=== PATIENT | male | born 1940 | race Caucasian/White ===

== ENCOUNTER 2022-03-25 13:47 | Inpatient (IN) | payer MEDICARE, BC ==
[2022-03-25 14:34] LABS: Mean Corpuscular HGB CONC 34.6 g/dL (32.0-36.0); Mean Corpuscular Hemoglobin 37.2 pg (27.0-33.0); Mean Corpuscular Volume 107.4 fl (81.2-95.1); Mean Platelet Volume 9.9 fl (7.4-10.4); Platelet Count 236 10x3/uL (150-450); RBC Distribution Width 17.2 % (11.5-14.5); Red Blood Cell (RBC) Count 2.96 10x6/uL (4.32-5.72); White Blood Cell (WBC) Count 26.5 10x3/uL (3.5-10.5)
[2022-03-25 14:35] LABS: MDiff Complete? YES
[2022-03-25] MEDS ORDERED: cefTRIAXone\\ROCEPHIN 1 GM VIAL ONE (14:36)
[2022-03-25 14:43] LABS: PTT 30.5 sec (22.0-33.0)
[2022-03-25] MEDS ORDERED: Azithromycin 500 MG VIAL ONE (14:44)
[2022-03-25 14:47] LABS: ALT (SGPT) 22 U/L (8-55); AST (SGOT) 29 U/L (5-34); Albumin 4.4 g/dL (3.4-4.8); Alkaline Phosphatase 49 U/L (40-110); Anion Gap 18 mmol/L (10-20); BUN (Urea Nitrogen) 27 mg/dL (8.4-25.7); Calc. Creatinine Clearance 0 mL/min (70-130); Calcium 9.2 mg/dL (7.8-10.44); Carbon Dioxide 20 mmol/L (23-31); Chloride 102 mmol/L (98-107); Estimated GFR 56; Globulin 2.9 g/dL (2.4-3.5); Glucose 165 mg/dL (83-110); Potassium 4.7 mmol/L (3.5-5.1); Protein, Total 7.3 g/dL (5.8-8.1); Sodium 135 mmol/L (136-145)
[2022-03-25 14:54] LABS: SARS-CoV-2 NAA Rapid Test Not Detected (NotDetected)
[2022-03-25 15:49] LABS: Band 7 % (5-11); Lymphocytes 5 % (21-51); Monocytes 4 % (0-10); Neutrophil 84 % (42-75)
[2022-03-25 15:50] LABS: Anisocytosis SLIGHT = 6-15 cells (100X) (0-5/hpf); Macrocytosis SLIGHT = 6-15 cells (100X) (0-5/hpf); Platelet Morphology Comment Appears Adequate
[2022-03-25 16:11] LABS: Bilirubin Neg (Negative); Blood, Urine Negative (Negative); Clarity Clear (Clear); Glucose, Urine (Dipstick) Normal (Negative); Ketone, Urine Negative (Negative); Leukocyte Negative (Negative); Nitrite Negative (Negative); Protein, Urine (Dipstick) 15 mg/dl (Neg-Trace); Urobilinogen Normal mg/dL (Less than 2)
[2022-03-25] MEDS ORDERED: Acetaminophen 325 MG TAB PO PRN (16:41)
[2022-03-25] MEDS ORDERED: Ondansetron ODT 4 MG TAB PO PRN (16:41)
[2022-03-25 17:53] LABS: Lactic Acid 2.1 mmol/L (0.5-2.2)
[2022-03-25] MEDS ORDERED: Dextrose 50% Abboject 50 ML SYRINGE SLOW IVP PRN (18:22)
[2022-03-25] MEDS ORDERED: HumaLOG 300 UNITS/3 ML VIAL SC PRN (18:22)
[2022-03-25] MEDS ORDERED: Dextrose 5% in Water 1,000 ML IV PRN (18:22)
[2022-03-25] MEDS: Sodium Chloride 0.9% 1,000 ML IV SCH (21:00)
[2022-03-25] MEDS: Metoprolol Tartrate 25 MG TAB PO SCH (21:03)
[2022-03-25] MEDS: Apixaban 2.5 MG TAB PO SCH (21:03)
[2022-03-25] MEDS: Rosuvastatin 10 MG TAB PO SCH (21:04)
[2022-03-25 23:36] LABS: Lactic Acid 2.2 mmol/L (0.5-2.2)
[2022-03-25 23:52] LABS: Legionella Urinary Ag Negative (Negative); Strep pneumo Urine Ag POSITIVE (NEGATIVE)
[2022-03-26 04:51] LABS: #Basophils 0.1 10x3/uL (0.0-0.2); #Monocytes 1.3 10x3/uL (0.0-1.1); #Neutrophils 27.5 10x3/uL (1.5-8.4); %Basophils 0.3 % (0.0-2.0); %Lymphocytes 7.8 % (18.0-47.0); %Monocytes 3.9 % (0.0-10.0); %Neutrophils 86.9 % (40.0-75.0); Hemoglobin 9.7 g/dL (13.5-17.5); Mean Corpuscular HGB CONC 34.3 g/dL (32.0-36.0); Mean Corpuscular Hemoglobin 36.9 pg (27.0-33.0); Mean Corpuscular Volume 107.6 fl (81.2-95.1); Mean Platelet Volume 10.6 fl (7.4-10.4); Platelet Count 208 10x3/uL (150-450); RBC Distribution Width 17.3 % (11.5-14.5); Red Blood Cell (RBC) Count 2.63 10x6/uL (4.32-5.72); White Blood Cell (WBC) Count 31.7 10x3/uL (3.5-10.5)
[2022-03-26 05:01] LABS: Anion Gap 13 mmol/L (10-20); BUN (Urea Nitrogen) 22 mg/dL (8.4-25.7); Calc. Creatinine Clearance 75 mL/min (70-130); Calcium 8.2 mg/dL (7.8-10.44); Carbon Dioxide 21 mmol/L (23-31); Chloride 106 mmol/L (98-107); Estimated GFR 78; Glucose 102 mg/dL (83-110); Potassium 4.2 mmol/L (3.5-5.1); Sodium 136 mmol/L (136-145)
[2022-03-26] MEDS: Sodium Chloride 0.9% 1,000 ML IV SCH ×2 (07:27→09:31)
[2022-03-26] MEDS ORDERED: Enoxaparin Sodium 40 MG/0.4 ML SYRINGE SC SCH (09:00)
[2022-03-26] MEDS: Apixaban 2.5 MG TAB PO SCH ×2 (09:25→21:30)
[2022-03-26] MEDS: Metoprolol Tartrate 25 MG TAB PO SCH ×2 (09:25→21:30)
[2022-03-26] MEDS: Aspirin 81 mg Enteric Coated Tablet PO SCH (09:25)
[2022-03-26] MEDS ORDERED: cefTRIAXone\\ROCEPHIN 1 GM in Sodium Chloride 0.9% 100 ML IVPB SCH (14:00)
[2022-03-26] MEDS ORDERED: Azithromycin 500 MG in Sodium Chloride 0.9% 250 ML 250 ML IVPB SCH (16:00)
[2022-03-26] MEDS ORDERED: Piperacillin/Tazobactam 3.375 GM in Sodium Chloride 0.9% 100 ML IVPB SCH (18:00)
[2022-03-26] MEDS: Piperacillin/Tazobactam 3.375 GM in Sodium Chloride 0.9% 100 ML IVPB SCH ×2 (18:31→23:36)
[2022-03-26] MEDS: Vancomycin HCl 1 GM in Sodium Chloride 0.9% 250 ML 250 ML IVPB SCH (21:30)
[2022-03-26] MEDS: Rosuvastatin 10 MG TAB PO SCH (21:30)
[2022-03-27] MEDS: Sodium Chloride 0.9% 1,000 ML IV SCH ×3 (04:37→15:56)
[2022-03-27] MEDS: Piperacillin/Tazobactam 3.375 GM in Sodium Chloride 0.9% 100 ML IVPB SCH ×2 (04:37→14:30)
[2022-03-27 04:52] LABS: #Basophils 0.1 10x3/uL (0.0-0.2); #Eosinphils 0.1 10x3/uL (0.0-0.5); #Monocytes 0.9 10x3/uL (0.0-1.1); #Neutrophils 12.8 10x3/uL (1.5-8.4); %Basophils 0.6 % (0.0-2.0); %Eosinophils 0.5 % (0.0-6.0); %Lymphocytes 11.3 % (18.0-47.0); Hemoglobin 9.3 g/dL (13.5-17.5); Mean Corpuscular HGB CONC 34.2 g/dL (32.0-36.0); Mean Corpuscular Hemoglobin 37.5 pg (27.0-33.0); Mean Corpuscular Volume 109.7 fl (81.2-95.1); Mean Platelet Volume 10.7 fl (7.4-10.4); Platelet Count 201 10x3/uL (150-450); RBC Distribution Width 17.2 % (11.5-14.5); Red Blood Cell (RBC) Count 2.48 10x6/uL (4.32-5.72); White Blood Cell (WBC) Count 15.8 10x3/uL (3.5-10.5)
[2022-03-27 05:11] LABS: Anion Gap 13 mmol/L (10-20); BUN (Urea Nitrogen) 17 mg/dL (8.4-25.7); Calc. Creatinine Clearance 89 mL/min (70-130); Calcium 8.4 mg/dL (7.8-10.44); Carbon Dioxide 20 mmol/L (23-31); Chloride 109 mmol/L (98-107); Estimated GFR 89; Glucose 108 mg/dL (83-110); Lactic Acid 0.9 mmol/L (0.5-2.2); Magnesium 2.1 mg/dL (1.6-2.6); Potassium 4.2 mmol/L (3.5-5.1); Sodium 138 mmol/L (136-145)
[2022-03-27 05:58] LABS: Anisocytosis SLIGHT = 6-15 cells (100X) (0-5/hpf); Macrocytosis SLIGHT = 6-15 cells (100X) (0-5/hpf); Platelet Morphology Comment Appears Adequate
[2022-03-27] MEDS: Vancomycin HCl 1 GM in Sodium Chloride 0.9% 250 ML 250 ML IVPB SCH ×2 (09:57→21:12)
[2022-03-27] MEDS: Metoprolol Tartrate 25 MG TAB PO SCH ×2 (09:58→20:56)
[2022-03-27] MEDS: Apixaban 2.5 MG TAB PO SCH ×2 (09:58→21:05)
[2022-03-27] MEDS: Aspirin 81 mg Enteric Coated Tablet PO SCH (09:58)
[2022-03-27] MEDS ORDERED: Furosemide 40 MG/4 ML VIAL SLOW IVP SCH (14:00)
[2022-03-27] MEDS ORDERED: hydrOXYzine Pamoate 25 mg Capsule PO PRN (15:21)
[2022-03-27] MEDS: Rosuvastatin 10 MG TAB PO SCH (20:56)
[2022-03-28] MEDS: Piperacillin/Tazobactam 3.375 GM in Sodium Chloride 0.9% 100 ML IVPB SCH ×4 (00:02→22:41)
[2022-03-28] MEDS ORDERED: Nitroglycerin 2% Ointment 1 INCH/1 GM Packet TOP SCH (02:00)
[2022-03-28 05:17] LABS: #Basophils 0.1 10x3/uL (0.0-0.2); #Eosinphils 0.1 10x3/uL (0.0-0.5); #Monocytes 1.2 10x3/uL (0.0-1.1); #Neutrophils 8.7 10x3/uL (1.5-8.4); %Basophils 0.7 % (0.0-2.0); %Eosinophils 0.8 % (0.0-6.0); %Lymphocytes 15.6 % (18.0-47.0); %Monocytes 9.9 % (0.0-10.0); %Neutrophils 72.2 % (40.0-75.0); Hemoglobin 8.4 g/dL (13.5-17.5); Mean Corpuscular HGB CONC 33.6 g/dL (32.0-36.0); Mean Corpuscular Hemoglobin 36.8 pg (27.0-33.0); Mean Corpuscular Volume 109.6 fl (81.2-95.1); Mean Platelet Volume 9.8 fl (7.4-10.4); Platelet Count 199 10x3/uL (150-450); Red Blood Cell (RBC) Count 2.28 10x6/uL (4.32-5.72)
[2022-03-28 05:18] LABS: Anion Gap 12 mmol/L (10-20); BUN (Urea Nitrogen) 13 mg/dL (8.4-25.7); Calc. Creatinine Clearance 87 mL/min (70-130); Calcium 8.5 mg/dL (7.8-10.44); Carbon Dioxide 24 mmol/L (23-31); Chloride 110 mmol/L (98-107); Estimated GFR 88; Glucose 124 mg/dL (83-110); Potassium 3.8 mmol/L (3.5-5.1); Sodium 142 mmol/L (136-145)
[2022-03-28] MEDS: Sodium Chloride 0.9% 1,000 ML IV SCH (06:14)
[2022-03-28] MEDS ORDERED: Furosemide 40 MG/4 ML VIAL SLOW IVP SCH ×2 (08:15→14:30)
[2022-03-28] MEDS ORDERED: methylPREDNISolone Sod Succ/PF 110 MG in Sodium Chloride 0.9% 250 ML 250 ML IVPB SCH (08:15)
[2022-03-28 08:22] LABS: Band 2 % (5-11); Lymphocytes 14 % (21-51); Monocytes 9 % (0-10); Neutrophil 75 % (42-75)
[2022-03-28 08:23] LABS: Platelet Morphology Comment Appears Adequate
[2022-03-28 08:24] LABS: Macrocytosis SLIGHT = 6-15 cells (100X) (0-5/hpf); Ovalocytes SLIGHT = 2-5 cells (100X) (0-1/hpf)
[2022-03-28 08:43] LABS: Vancomycin, Trough 9.7 ug/mL
[2022-03-28] MEDS: methylPREDNISolone Sod Succ/PF 125 MG/2 ML VIAL IVP SCH (08:44)
[2022-03-28 08:52] LABS: Actual Bicarbonate (HCO3a) 23.8 mEq/L (22-28); Base Excess (BEa) 0.1 mEq/L (-2.0 to +3.0); CO2 Tension 35.7 mmHg (35.0-45.0); Calcium, Ionized (arterial) 1.11 mmol/L (1.12-1.30); Carboxyhemoglobin (COHb) 0.7 gm% (0.0-3.0); Hemoglobin (Hb) 13.5 g/dL (14.0-18.0); O2 Tension (PaO2), arterial 62.5 mmHg (> 60.0); Potassium - ABG Lab 3.3 mmol/L (3.70-5.30); Puncture Site RRA; pH, Arterial 7.44 (7.35-7.45)
[2022-03-28 08:57] LABS: ALV-art Gradient 605.875 mmHg (0-20)
[2022-03-28] MEDS: Apixaban 2.5 MG TAB PO SCH ×2 (09:33→20:34)
[2022-03-28] MEDS: Metoprolol Tartrate 25 MG TAB PO SCH ×2 (09:33→20:34)
[2022-03-28] MEDS: Aspirin 81 mg Enteric Coated Tablet PO SCH (09:33)
[2022-03-28] MEDS: VANCOMYCIN 1.25 GM/250 ML BAG 1.25 GM in Premix Bag 1 BAG IVPB SCH ×2 (09:55→20:34)
[2022-03-28] MEDS: HumaLOG 300 UNITS/3 ML VIAL SC PRN (16:40)
[2022-03-28] MEDS: Rosuvastatin 10 MG TAB PO SCH (20:34)
[2022-03-29] MEDS: HumaLOG 300 UNITS/3 ML VIAL SC PRN ×4 (00:24→16:31)
[2022-03-29 01:32] VITALS: BMI 29.0
[2022-03-29 04:45] LABS: Hemoglobin 9.3 g/dL (13.5-17.5); Mean Corpuscular HGB CONC 34.3 g/dL (32.0-36.0); Mean Corpuscular Hemoglobin 36.9 pg (27.0-33.0); Mean Corpuscular Volume 107.5 fl (81.2-95.1); Mean Platelet Volume 10.2 fl (7.4-10.4); Platelet Count 260 10x3/uL (150-450); RBC Distribution Width 16.4 % (11.5-14.5); Red Blood Cell (RBC) Count 2.52 10x6/uL (4.32-5.72); White Blood Cell (WBC) Count 11.5 10x3/uL (3.5-10.5)
[2022-03-29 05:02] LABS: Anion Gap 15 mmol/L (10-20); BUN (Urea Nitrogen) 19 mg/dL (8.4-25.7); Calc. Creatinine Clearance 83 mL/min (70-130); Calcium 8.9 mg/dL (7.8-10.44); Carbon Dioxide 25 mmol/L (23-31); Chloride 106 mmol/L (98-107); Estimated GFR 86; Glucose 152 mg/dL (83-110); Potassium 3.2 mmol/L (3.5-5.1); Sodium 143 mmol/L (136-145)
[2022-03-29 05:03] LABS: Lactic Acid 1.2 mmol/L (0.5-2.2)
[2022-03-29 05:13] LABS: MDiff Complete? YES
[2022-03-29 05:24] LABS: Band 16 % (5-11); Lymphocytes 12 % (21-51); Monocytes 8 % (0-10); Neutrophil 64 % (42-75); Nucleated RBC 1 % (0)
[2022-03-29 05:25] LABS: Anisocytosis SLIGHT = 6-15 cells (100X) (0-5/hpf); Macrocytosis SLIGHT = 6-15 cells (100X) (0-5/hpf)
[2022-03-29 05:26] LABS: Hypochromia SLIGHT = 6-15 cells (100X) (0-5/hpf); Ovalocytes SLIGHT = 2-5 cells (100X) (0-1/hpf); Platelet Morphology Comment Appears Adequate
[2022-03-29] MEDS ORDERED: Potassium Chloride 20 MEQ TAB PO SCH (05:45)
[2022-03-29] MEDS: Piperacillin/Tazobactam 3.375 GM in Sodium Chloride 0.9% 100 ML IVPB SCH ×3 (05:59→21:18)
[2022-03-29] MEDS: Metoprolol Tartrate 25 MG TAB PO SCH ×2 (08:18→21:18)
[2022-03-29] MEDS: Apixaban 2.5 MG TAB PO SCH ×2 (08:19→21:18)
[2022-03-29] MEDS: methylPREDNISolone Sod Succ/PF 125 MG/2 ML VIAL IVP SCH (08:19)
[2022-03-29] MEDS: Aspirin 81 mg Enteric Coated Tablet PO SCH (08:19)
[2022-03-29] MEDS: VANCOMYCIN 1.25 GM/250 ML BAG 1.25 GM in Premix Bag 1 BAG IVPB SCH (08:56)
[2022-03-29] MEDS ORDERED: Furosemide 40 MG/4 ML VIAL SLOW IVP SCH (18:30)
[2022-03-29 20:20] LABS: Vancomycin, Trough 14.5 ug/mL
[2022-03-29] MEDS: Rosuvastatin 10 MG TAB PO SCH (21:18)
[2022-03-30 04:41] LABS: #Basophils 0.1 10x3/uL (0.0-0.2); #Monocytes 1.5 10x3/uL (0.0-1.1); #Neutrophils 14.9 10x3/uL (1.5-8.4); %Basophils 0.3 % (0.0-2.0); %Eosinophils 0.1 % (0.0-6.0); %Lymphocytes 12.2 % (18.0-47.0); %Monocytes 7.8 % (0.0-10.0); %Neutrophils 78.3 % (40.0-75.0); Hemoglobin 9.4 g/dL (13.5-17.5); Mean Corpuscular HGB CONC 34.1 g/dL (32.0-36.0); Mean Corpuscular Hemoglobin 36.3 pg (27.0-33.0); Mean Corpuscular Volume 106.6 fl (81.2-95.1); Mean Platelet Volume 9.9 fl (7.4-10.4); Platelet Count 321 10x3/uL (150-450); RBC Distribution Width 16.4 % (11.5-14.5); Red Blood Cell (RBC) Count 2.59 10x6/uL (4.32-5.72)
[2022-03-30 04:54] LABS: ALT (SGPT) 80 U/L (8-55); AST (SGOT) 51 U/L (5-34); Albumin 3.5 g/dL (3.4-4.8); Alkaline Phosphatase 96 U/L (40-110); Anion Gap 14 mmol/L (10-20); BUN (Urea Nitrogen) 24 mg/dL (8.4-25.7); Bilirubin, Direct 0.4 mg/dL (0.1-0.3); Bilirubin, Total 0.8 mg/dL (0.2-1.2); Calc. Creatinine Clearance 81 mL/min (70-130); Calcium 8.9 mg/dL (7.8-10.44); Carbon Dioxide 26 mmol/L (23-31); Chloride 108 mmol/L (98-107); Estimated GFR 86; Glucose 117 mg/dL (83-110); Potassium 3.4 mmol/L (3.5-5.1); Protein, Total 6.3 g/dL (5.8-8.1); Sodium 145 mmol/L (136-145)
[2022-03-30] MEDS: Piperacillin/Tazobactam 3.375 GM in Sodium Chloride 0.9% 100 ML IVPB SCH ×2 (05:18→13:16)
[2022-03-30] MEDS: Losartan Potassium 50 MG TAB PO SCH (08:08)
[2022-03-30] MEDS: Metoprolol Tartrate 25 MG TAB PO SCH ×2 (08:09→20:23)
[2022-03-30] MEDS: Aspirin 81 mg Enteric Coated Tablet PO SCH (08:09)
[2022-03-30] MEDS: Apixaban 2.5 MG TAB PO SCH ×2 (08:09→20:24)
[2022-03-30] MEDS: Hydrochlorothiazide 25 MG TAB PO SCH (08:09)
[2022-03-30] MEDS: Amlodipine 5 MG TAB PO SCH (08:09)
[2022-03-30] MEDS: methylPREDNISolone Sod Succ/PF 125 MG/2 ML VIAL IVP SCH (08:10)
[2022-03-30] MEDS: Potassium Chloride 20 MEQ TAB PO SCH ×2 (08:11→16:46)
[2022-03-30] MEDS: HumaLOG 300 UNITS/3 ML VIAL SC PRN ×2 (11:36→16:44)
[2022-03-30] MEDS: cefTRIAXone\\ROCEPHIN 2 GM in Sodium Chloride 0.9% 100 ML IVPB SCH (14:36)
[2022-03-30] MEDS: Azithromycin 250 MG TAB PO SCH (14:37)
[2022-03-30] MEDS: Rosuvastatin 10 MG TAB PO SCH ×2 (20:23→20:24)
[2022-03-30] MEDS: Senokot S 8.6-50 MG TAB PO SCH ×2 (21:06→21:08)
[2022-03-31 04:12] LABS: #Monocytes 1.6 10x3/uL (0.0-1.1); #Neutrophils 14.4 10x3/uL (1.5-8.4); %Basophils 0.2 % (0.0-2.0); %Eosinophils 0.1 % (0.0-6.0); %Lymphocytes 14.8 % (18.0-47.0); %Monocytes 7.9 % (0.0-10.0); %Neutrophils 72.9 % (40.0-75.0); Hemoglobin 9.5 g/dL (13.5-17.5); Mean Corpuscular HGB CONC 34.5 g/dL (32.0-36.0); Mean Corpuscular Hemoglobin 36.3 pg (27.0-33.0); Mean Platelet Volume 9.8 fl (7.4-10.4); Platelet Count 321 10x3/uL (150-450); RBC Distribution Width 16.5 % (11.5-14.5); Red Blood Cell (RBC) Count 2.62 10x6/uL (4.32-5.72); White Blood Cell (WBC) Count 19.8 10x3/uL (3.5-10.5)
[2022-03-31 04:18] LABS: Anion Gap 15 mmol/L (10-20); BUN (Urea Nitrogen) 22 mg/dL (8.4-25.7); Calc. Creatinine Clearance 91 mL/min (70-130); Calcium 9.1 mg/dL (7.8-10.44); Carbon Dioxide 26 mmol/L (23-31); Chloride 107 mmol/L (98-107); Estimated GFR 89; Glucose 107 mg/dL (83-110); Potassium 4.4 mmol/L (3.5-5.1); Sodium 144 mmol/L (136-145)
[2022-03-31] MEDS: Senokot S 8.6-50 MG TAB PO SCH (08:47)
[2022-03-31] MEDS: predniSONE 50 MG TAB PO SCH (08:47)
[2022-03-31] MEDS: Amlodipine 5 MG TAB PO SCH (08:50)
[2022-03-31] MEDS: Metoprolol Tartrate 25 MG TAB PO SCH ×2 (08:50→20:29)
[2022-03-31] MEDS: Losartan Potassium 50 MG TAB PO SCH (08:51)
[2022-03-31] MEDS: Apixaban 2.5 MG TAB PO SCH ×2 (08:51→20:29)
[2022-03-31] MEDS: Aspirin 81 mg Enteric Coated Tablet PO SCH (08:51)
[2022-03-31] MEDS: Polyethylene Glycol 3350 17 GM Packet PO SCH (08:51)
[2022-03-31] MEDS: Hydrochlorothiazide 25 MG TAB PO SCH (08:51)
[2022-03-31] MEDS: HumaLOG 300 UNITS/3 ML VIAL SC PRN ×2 (11:49→17:06)
[2022-03-31] MEDS: Azithromycin 250 MG TAB PO SCH (14:53)
[2022-03-31] MEDS: cefTRIAXone\\ROCEPHIN 2 GM in Sodium Chloride 0.9% 100 ML IVPB SCH (14:53)
[2022-03-31] MEDS ORDERED: hydrALAZINE 20 MG/ML VIAL SLOW IVP PRN (16:35)
[2022-03-31] MEDS: hydrALAZINE 20 MG/ML VIAL SLOW IVP PRN ×2 (17:06→22:23)
[2022-04-01 04:53] LABS: #Basophils 0.1 10x3/uL (0.0-0.2); #Eosinphils 0.1 10x3/uL (0.0-0.5); #Neutrophils 9.8 10x3/uL (1.5-8.4); %Basophils 0.4 % (0.0-2.0); %Eosinophils 0.7 % (0.0-6.0); %Lymphocytes 20.5 % (18.0-47.0); %Monocytes 6.9 % (0.0-10.0); Hemoglobin 9.7 g/dL (13.5-17.5); Mean Corpuscular HGB CONC 34.5 g/dL (32.0-36.0); Mean Corpuscular Hemoglobin 36.1 pg (27.0-33.0); Mean Corpuscular Volume 104.5 fl (81.2-95.1); Platelet Count 330 10x3/uL (150-450); RBC Distribution Width 17.1 % (11.5-14.5); Red Blood Cell (RBC) Count 2.69 10x6/uL (4.32-5.72); White Blood Cell (WBC) Count 14.7 10x3/uL (3.5-10.5)
[2022-04-01 05:19] LABS: Anion Gap 17 mmol/L (10-20); BUN (Urea Nitrogen) 22 mg/dL (8.4-25.7); Calc. Creatinine Clearance 95 mL/min (70-130); Calcium 8.9 mg/dL (7.8-10.44); Carbon Dioxide 21 mmol/L (23-31); Chloride 107 mmol/L (98-107); Estimated GFR 90; Glucose 107 mg/dL (83-110); Potassium 3.7 mmol/L (3.5-5.1); Sodium 141 mmol/L (136-145)
[2022-04-01] MEDS: Losartan Potassium 50 MG TAB PO SCH (08:27)
[2022-04-01] MEDS: Polyethylene Glycol 3350 17 GM Packet PO SCH (08:27)
[2022-04-01] MEDS: Metoprolol Tartrate 25 MG TAB PO SCH ×2 (08:27→20:46)
[2022-04-01] MEDS: Apixaban 2.5 MG TAB PO SCH ×2 (08:27→20:46)
[2022-04-01] MEDS: Aspirin 81 mg Enteric Coated Tablet PO SCH (08:27)
[2022-04-01] MEDS: Hydrochlorothiazide 25 MG TAB PO SCH (08:27)
[2022-04-01] MEDS: Amlodipine 10 MG TAB PO SCH (08:27)
[2022-04-01] MEDS: predniSONE 50 MG TAB PO SCH (08:36)
[2022-04-01] MEDS: HumaLOG 300 UNITS/3 ML VIAL SC PRN ×2 (12:12→16:29)
[2022-04-01] MEDS: cefTRIAXone\\ROCEPHIN 2 GM in Sodium Chloride 0.9% 100 ML IVPB SCH (14:53)
[2022-04-01] MEDS: Azithromycin 250 MG TAB PO SCH (14:53)
[2022-04-01] MEDS: Rosuvastatin 10 MG TAB PO SCH (20:46)
[2022-04-02 05:42] LABS: #Basophils 0.1 10x3/uL (0.0-0.2); #Eosinphils 0.2 10x3/uL (0.0-0.5); #Neutrophils 12.1 10x3/uL (1.5-8.4); %Basophils 0.3 % (0.0-2.0); %Lymphocytes 15.2 % (18.0-47.0); %Monocytes 6.3 % (0.0-10.0); %Neutrophils 74.7 % (40.0-75.0); Hemoglobin 9.5 g/dL (13.5-17.5); Mean Corpuscular HGB CONC 35.1 g/dL (32.0-36.0); Mean Corpuscular Hemoglobin 36.1 pg (27.0-33.0); Mean Platelet Volume 10.3 fl (7.4-10.4); Platelet Count 339 10x3/uL (150-450); RBC Distribution Width 16.9 % (11.5-14.5); Red Blood Cell (RBC) Count 2.63 10x6/uL (4.32-5.72); White Blood Cell (WBC) Count 16.3 10x3/uL (3.5-10.5)
[2022-04-02 05:57] LABS: Anion Gap 13 mmol/L (10-20); BUN (Urea Nitrogen) 25 mg/dL (8.4-25.7); Calc. Creatinine Clearance 100 mL/min (70-130); Calcium 8.7 mg/dL (7.8-10.44); Carbon Dioxide 25 mmol/L (23-31); Chloride 106 mmol/L (98-107); Estimated GFR 91; Glucose 113 mg/dL (83-110); Potassium 3.5 mmol/L (3.5-5.1); Sodium 140 mmol/L (136-145)
[2022-04-02] MEDS: predniSONE 50 MG TAB PO SCH (08:40)
[2022-04-02] MEDS: Hydrochlorothiazide 25 MG TAB PO SCH (08:40)
[2022-04-02] MEDS: Amlodipine 10 MG TAB PO SCH (08:41)
[2022-04-02] MEDS: Polyethylene Glycol 3350 17 GM Packet PO SCH (08:41)
[2022-04-02] MEDS: Aspirin 81 mg Enteric Coated Tablet PO SCH (08:41)
[2022-04-02] MEDS: Apixaban 2.5 MG TAB PO SCH (08:41)
[2022-04-02] MEDS: Metoprolol Tartrate 25 MG TAB PO SCH ×2 (08:42→20:05)
[2022-04-02] MEDS: Losartan Potassium 50 MG TAB PO SCH (08:42)
[2022-04-02] MEDS ORDERED: Furosemide 20 MG/2 ML VIAL SLOW IVP SCH (09:00)
[2022-04-02] MEDS: HumaLOG 300 UNITS/3 ML VIAL SC PRN ×2 (11:16→18:41)
[2022-04-02 12:36] LABS: Hemoglobin A1c 5.6 % (4.0-6.0)
[2022-04-02] MEDS: Azithromycin 250 MG TAB PO SCH (14:50)
[2022-04-02] MEDS: cefTRIAXone\\ROCEPHIN 2 GM in Sodium Chloride 0.9% 100 ML IVPB SCH (14:50)
[2022-04-02] MEDS: Furosemide 20 MG/2 ML VIAL SLOW IVP SCH (14:50)
[2022-04-02] MEDS: Rosuvastatin 10 MG TAB PO SCH (20:05)
[2022-04-02] MEDS: Apixaban 5 MG TAB PO SCH (20:05)
[2022-04-03 04:31] LABS: #Basophils 0.1 10x3/uL (0.0-0.2); #Eosinphils 0.2 10x3/uL (0.0-0.5); #Monocytes 1.2 10x3/uL (0.0-1.1); #Neutrophils 13.9 10x3/uL (1.5-8.4); %Basophils 0.3 % (0.0-2.0); %Eosinophils 1.1 % (0.0-6.0); %Lymphocytes 16.9 % (18.0-47.0); %Monocytes 6.4 % (0.0-10.0); %Neutrophils 73.9 % (40.0-75.0); Hemoglobin 10.8 g/dL (13.5-17.5); Mean Corpuscular HGB CONC 33.5 g/dL (32.0-36.0); Mean Corpuscular Hemoglobin 35.4 pg (27.0-33.0); Mean Corpuscular Volume 105.6 fl (81.2-95.1); Mean Platelet Volume 10.5 fl (7.4-10.4); Platelet Count 331 10x3/uL (150-450); RBC Distribution Width 16.9 % (11.5-14.5); Red Blood Cell (RBC) Count 3.05 10x6/uL (4.32-5.72); White Blood Cell (WBC) Count 18.8 10x3/uL (3.5-10.5)
[2022-04-03 04:42] LABS: Anion Gap 15 mmol/L (10-20); BUN (Urea Nitrogen) 23 mg/dL (8.4-25.7); Calc. Creatinine Clearance 100 mL/min (70-130); Calcium 9.1 mg/dL (7.8-10.44); Carbon Dioxide 24 mmol/L (23-31); Chloride 105 mmol/L (98-107); Estimated GFR 91; Glucose 86 mg/dL (83-110); Magnesium 2.1 mg/dL (1.6-2.6); Potassium 4.4 mmol/L (3.5-5.1); Sodium 140 mmol/L (136-145)
[2022-04-03 04:49] VITALS: TEMP 97.5
[2022-04-03] MEDS: Furosemide 20 MG/2 ML VIAL SLOW IVP SCH ×3 (05:58→16:53)
[2022-04-03 06:35] LABS: Polychromasia SLIGHT = 2-3 cells (100X) (0-2/hpf)
[2022-04-03 06:36] LABS: Hypochromia SLIGHT = 6-15 cells (100X) (0-5/hpf); Macrocytosis SLIGHT = 6-15 cells (100X) (0-5/hpf); Platelet Morphology Comment Appears Adequate
[2022-04-03 10:59] VITALS: BP 156/63
[2022-04-03] MEDS: Metoprolol Tartrate 25 MG TAB PO SCH (11:22)
[2022-04-03] MEDS: Losartan Potassium 50 MG TAB PO SCH (11:22)
[2022-04-03] MEDS: Apixaban 5 MG TAB PO SCH (11:22)
[2022-04-03] MEDS: Aspirin 81 mg Enteric Coated Tablet PO SCH (11:22)
[2022-04-03] MEDS: Amlodipine 10 MG TAB PO SCH (11:23)
[2022-04-03] MEDS: Hydrochlorothiazide 25 MG TAB PO SCH (11:23)
[2022-04-03] MEDS: Polyethylene Glycol 3350 17 GM Packet PO SCH (11:23)
[2022-04-03] MEDS: predniSONE 50 MG TAB PO SCH (11:25)
[2022-04-03] MEDS ORDERED: Iopamidol 370 76% 100 ML VIAL ONE (12:59)
[2022-04-03] MEDS: Azithromycin 250 MG TAB PO SCH (16:19)
[2022-04-03] MEDS: cefTRIAXone\\ROCEPHIN 2 GM in Sodium Chloride 0.9% 100 ML IVPB SCH ×2 (16:50→16:53)
== END 2022-04-03 19:30 | disposition home or self-care (01) | DRG 871 ==
LOC: CSHERS 13:47 → CSHTELE 20:18 → OBSVTOIN 20:19 → CSHICU 03-28 09:02 → CSHTELE 03-31 12:43
PROVIDERS: ADMIT Internal Medicine Geriatric Medicine; ATTEND Family Medicine
PROC: 3E03329 Introduction of Other Anti-infective into Peripheral Vein, Percutaneous Approach (ICD-10-PCS; principal; 2022-03-25)
PROC: 5A09457 Assistance with Respiratory Ventilation, 24-96 Consecutive Hours, Continuous Positive Airway Pressure (ICD-10-PCS; 2022-03-28)
DX: A40.3 Sepsis due to Streptococcus pneumoniae (principal); J13 Pneumonia due to Streptococcus pneumoniae; J96.01 Acute respiratory failure with hypoxia; E87.2 Acidosis; J44.1 Chronic obstructive pulmonary disease with (acute) exacerbation; J44.0 Chronic obstructive pulmonary disease with (acute) lower respiratory infection; J90 Pleural effusion, not elsewhere classified; J81.1 Chronic pulmonary edema; Z20.822 Contact with and (suspected) exposure to COVID-19; E11.51 Type 2 diabetes mellitus with diabetic peripheral angiopathy without gangrene; I48.91 Unspecified atrial fibrillation; D64.9 Anemia, unspecified; K21.9 Gastro-esophageal reflux disease without esophagitis; I10 Essential (primary) hypertension; E78.5 Hyperlipidemia, unspecified; J84.10 Pulmonary fibrosis, unspecified; Z79.899 Other long term (current) drug therapy; Z79.82 Long term (current) use of aspirin; Z79.84 Long term (current) use of oral hypoglycemic drugs; Z90.89 Acquired absence of other organs; Z98.41 Cataract extraction status, right eye; Z98.42 Cataract extraction status, left eye; Z87.891 Personal history of nicotine dependence; Z72.89 Other problems related to lifestyle
CPT/HCPCS: 36415; 36416; 36600; 71045; 71250; 71275; 80048; 80053; 80076; 80202; 81003; 82805; 83036; 83605; 83735; 84145; 85025; 85610; 85730; 86140; 87040; 87070; 87081; 87205; 87449; 87899; 93005; 93306; 93970; 94640; 94660; 94760; 96365; 96375; J0360; J0456; J0696; J1815; J1940; J2543; J2930; J3370; J3490; J7050; J7512; J7620; Q0177; Q9967; U0003; U0005

== ENCOUNTER 2022-04-09 15:04 | Emergency (ER) | payer MEDICARE, BC ==
[2022-04-09] MEDS ORDERED: Oxymetazoline HCl 0.05% ( 15 ML ) ONE (15:35)
[2022-04-09] MEDS ORDERED: Tranexamic Acid 1,000 MG/10 ML VIAL ONE (17:50)
== END 2022-04-09 18:17 | disposition home or self-care (01) ==
LOC: CSHERS 15:04
DX: R04.0 Epistaxis (principal); I10 Essential (primary) hypertension
CPT/HCPCS: 99282

== ENCOUNTER 2023-06-26 09:15 | Emergency (ER) | payer MEDICARE, BC ==
[2023-06-26] MEDS ORDERED: Lidocaine 1% w/Epinephrine 1:200K 30 ML VIAL ONE (09:39)
[2023-06-26] MEDS ORDERED: Boostrix 0.5 ML (Tdap) VIAL (>/=7 yrs of age) ONE (09:46)
== END 2023-06-26 10:30 | disposition home or self-care (01) ==
LOC: CSHERS 09:15
DX: S01.112A Laceration without foreign body of left eyelid and periocular area, initial encounter (principal); H11.32 Conjunctival hemorrhage, left eye; I10 Essential (primary) hypertension; W10.8XXA Fall (on) (from) other stairs and steps, initial encounter; Y93.89 Activity, other specified; Z23 Encounter for immunization
CPT/HCPCS: 12014; 70450; 70486; 72125; 90471; 90715

== ENCOUNTER 2023-06-26 18:40 | Emergency (ER) | payer MEDICARE, BC | END 2023-06-26 21:40 | disposition home or self-care (01) | LOC: CSHERS 18:40 | DX: S05.42XA Penetrating wound of orbit with or without foreign body, left eye, initial encounter (principal); H59.322 Postprocedural hemorrhage of left eye and adnexa following other procedure; I10 Essential (primary) hypertension; E66.9 Obesity, unspecified; W01.0XXA Fall on same level from slipping, tripping and stumbling without subsequent striking against object, initial encounter | CPT/HCPCS: 12014; 70450; 70486; 72125; 90471; 90715; 99283 ==

== ENCOUNTER 2023-07-03 08:59 | Emergency (ER) | payer MEDICARE, BC ==
[2023-07-03] MEDS ORDERED: Triple Antibiotic Oint 1 GM Packet ONE (10:23)
== END 2023-07-03 11:20 | disposition home or self-care (01) ==
LOC: CSHERS 08:59
DX: S01.112D Laceration without foreign body of left eyelid and periocular area, subsequent encounter (principal); I10 Essential (primary) hypertension; X58.XXXD Exposure to other specified factors, subsequent encounter

== ENCOUNTER 2023-12-25 09:55 | Emergency (ER) | payer MEDICARE ==
[2023-12-25] MEDS ORDERED: dilTIAZem 25 MG/5 ML VIAL ONE (10:35)
[2023-12-25 10:41] LABS: #Eosinphils 0.05 10x3/uL (0.0-0.5); #Monocytes 1.05 10x3/uL (0.0-1.1); #Neutrophils 9.49 10x3/uL (1.5-8.4); %Basophils 0.8 % (0.0-2.0); %Eosinophils 0.4 % (0.0-6.0); %Lymphocytes 15.2 % (18.0-47.0); %Monocytes 8.3 % (0.0-10.0); %Neutrophils 74.9 % (40.0-75.0); Hematocrit 29.2 % (38.8-50.0); Hemoglobin 10.2 g/dL (13.5-17.5); Mean Corpuscular HGB CONC 34.9 g/dL (32.0-36.0); Mean Corpuscular Hemoglobin 35.1 pg (27.0-33.0); Mean Corpuscular Volume 100.3 fl (81.2-95.1); Mean Platelet Volume 11.3 fl (7.4-10.4); Platelet Count 274 10x3/uL (150-450); Red Blood Cell (RBC) Count 2.91 10x6/uL (4.32-5.72); White Blood Cell (WBC) Count 12.7 10x3/uL (3.5-10.5)
[2023-12-25 11:02] LABS: ALT (SGPT) 9 U/L (8-55); AST (SGOT) 16 U/L (5-34); Albumin 3.5 g/dL (3.4-4.8); Alkaline Phosphatase 130 U/L (40-110); Anion Gap 16 mmol/L (10-20); BUN (Urea Nitrogen) 39 mg/dL (8.4-25.7); Bilirubin, Total 0.7 mg/dL (0.2-1.2); Calc. Creatinine Clearance 0 mL/min (70-130); Carbon Dioxide 26 mmol/L (23-31); Chloride 96 mmol/L (98-107); Estimated GFR 30; Globulin 3.2 g/dL (2.4-3.5); Lipase 142 U/L (8-78); Potassium 4.3 mmol/L (3.5-5.1); Protein, Total 6.7 g/dL (5.8-8.1); Sodium 134 mmol/L (136-145)
[2023-12-25 11:06] LABS: Troponin I Less than 0.010 ng/mL (< 0.028)
[2023-12-25 11:13] LABS: Critical Call Chemistry SJOS.OD@1110; Glucose 425 mg/dL (83-110)
[2023-12-25] MEDS ORDERED: Insulin Regular 300 UNITS/3 ML VIAL ONE (11:32)
[2023-12-25 12:37] LABS: Thyroid Stimulating Hormone 1.5568 uIU/mL (0.35-4.94)
[2023-12-25] MEDS ORDERED: Acetaminophen 500 MG TAB ONE (13:41)
[2023-12-25 14:26] LABS: T4 7.13 ug/dL (4.87-11.72)
== END 2023-12-25 13:54 | disposition home or self-care (01) ==
LOC: CSHERS 09:55
DX: I48.91 Unspecified atrial fibrillation (principal); N17.9 Acute kidney failure, unspecified; E11.65 Type 2 diabetes mellitus with hyperglycemia; J44.9 Chronic obstructive pulmonary disease, unspecified; I10 Essential (primary) hypertension; Z87.891 Personal history of nicotine dependence
CPT/HCPCS: 36416; 71045; 80053; 83036; 83690; 83880; 84436; 84443; 84484; 85025; 93005; 96361; 96374; 96375; 96376; J1815

== ENCOUNTER 2023-12-25 17:26 | Emergency (ER) | payer MEDICARE | END 2023-12-25 18:25 | disposition home or self-care (01) | LOC: CSHERS 17:26 | DX: K06.8 Other specified disorders of gingiva and edentulous alveolar ridge (principal); I10 Essential (primary) hypertension; E11.9 Type 2 diabetes mellitus without complications; I48.91 Unspecified atrial fibrillation; Z87.891 Personal history of nicotine dependence; Z79.01 Long term (current) use of anticoagulants | CPT/HCPCS: 99283 ==

== ENCOUNTER 2023-12-25 21:07 | Emergency (ER) | payer MEDICARE ==
[2023-12-25] MEDS ORDERED: HYDROcodone/Acetaminophen 5/325 mg Tablet ONE (23:24)
[2023-12-26 01:06] LABS: Bilirubin 3+ (Negative); Blood, Urine 50 (Negative); Clarity Clear (Clear); Glucose, Urine (Dipstick) 100 mg/dL (Negative); Ketone, Urine 5 mg/dL (Negative); Leukocyte 25 (Negative); Nitrite Negative (Negative); Protein, Urine (Dipstick) 30 mg/dl (Neg-Trace); Urobilinogen Normal mg/dL (Less than 2)
[2023-12-26 01:13] LABS: Bacteria/HPF Rare-Few HPF (None Seen); CAUTI Indications for Culture Pelvic or flank pain; RBC/HPF 0-3 HPF (0-3); Squamous Epithelial 0-3 HPF (0-3); Urine Culture Reflex No No; WBC/HPF 0-3 HPF (0-3)
[2023-12-26] MEDS ORDERED: HYDROcodone/Acetaminophen 5/325 mg Tablet ONE (01:43)
== END 2023-12-26 02:44 | disposition home or self-care (01) ==
LOC: CSHERS 21:07
DX: M54.50 Low back pain, unspecified (principal); E11.9 Type 2 diabetes mellitus without complications; I10 Essential (primary) hypertension; I48.91 Unspecified atrial fibrillation; Z87.891 Personal history of nicotine dependence; Z79.82 Long term (current) use of aspirin
CPT/HCPCS: 74176; 81001